=== PATIENT | female | born 2000 | race American Indian/Alaskan Native ===

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

== ENCOUNTER 2021-02-06 13:54 | Emergency (ER) | payer OTHER ==
[2021-02-06 14:22] VITALS: BP 129/74
[2021-02-06 15:18] LABS: Basophils % (Auto) 0.2 % (0.0-1.8); Eosinophils # (Auto) 0.1 K/mm3 (0.0-0.4); Eosinophils % (Auto) 0.5 % (0.0-4.3); Hematocrit 36.5 % (30.3-42.9); Hemoglobin 12.2 gm/dl (10.1-14.3); Lymphocytes # (Auto) 1.6 K/mm3 (1.2-5.4); Lymphocytes % (Auto) 12.8 % (13.4-35.0); Mean Corpuscular HGB Conc 34 % (30-34); Mean Corpuscular Volume 87 fl (79-97); Monocytes # (Auto) 1.1 K/mm3 (0.0-0.8); Monocytes % (Auto) 8.7 % (0.0-7.3); Platelet Count 209 K/mm3 (140-440); Red Blood Count 4.22 M/mm3 (3.65-5.03); Red Cell Distribution Width 13.6 % (13.2-15.2)
[2021-02-06 15:33] LABS: Alanine Aminotransferase 32 units/L (7-56); Albumin 3.6 g/dL (3.9-5); Blood Urea Nitrogen 3 mg/dL (7-17); Calcium 8.9 mg/dL (8.4-10.2); Hemolysis Index 0
[2021-02-06 15:34] LABS: BUN/Creatinine Ratio 6
[2021-02-06 16:35] LABS: Bacteria,Urine 1+ /HPF (Negative); Bilirubin,Urine NEG (Negative); Blood,Urine NEG (Negative); Color,Urine Amber (Yellow); Mucus,Urine 3+ /HPF
== END 2021-02-06 16:45 | disposition left against medical advice (07) ==
LOC: ED 13:54
DX: R11.10 Vomiting, unspecified (principal); Z53.21 Procedure and treatment not carried out due to patient leaving prior to being seen by health care provider
CPT/HCPCS: 36415; 80053; 81001; 85025

== ENCOUNTER 2021-04-10 10:28 | Inpatient (IN) | payer OTHER ==
--- NOTE | 2021-04-10 11:16 | History and Physical Report ---
History of Present Illness Date of examination: 04/10/21 Date of admission: 04/10/21 Chief complaint: labor History of present illness: The patient is a 20-year-old single Afro-[place] female who presents in labor her records are in the chart she goes to [facility] for care her EDC is 04/19/2021 by ultrasound the patient failed her 1 hour GTT has a pending A1c she had 9 visits. Otherwise the patient had a benign care her blood type is O+. Antibody screen negative. Hematocrit 39.7%. Her platelet count was 228,000. Rubella was nonreactive and her RPR was nonreactive. HIV test was nonreactive her 3-hour GTT was normal VDRL was nonreactive. She had several ultrasounds during the . Trichomonas test was negative chlamydia and gonorrhea tests were negative urine culture no growth RPR was nonreactive HIV test is negative hepatitis B test is negative patient does not smoke or use alcohol or illicit drugs. He does have a prior history of asthma. No allergies. Past History Past Medical History: asthma Past Surgical History: no surgical history Family/Genetic History: none Social history: single - Obstetrical History Expected Date of Delivery: 04/19/21 Actual Gestation: 38 Week(s) 5 Day(s) : 1 Para: 0 Hx # Term Pregnancies: 0 Number of Pregnancies: 0 Spontaneous Abortions: 0 Induced : 0 Number of Living Children: 0 Medications and Allergies Allergies Allergy/AdvReac Type Severity Reaction Status Date / Time apple AdvReac Anaphylaxis Verified 04/10/21 11:09 Home Medications Medication Instructions Recorded Confirmed Last Taken Type cephALEXin [Keflex] 500 mg PO Q8HR #21 cap 03/25/20 Unknown Rx metroNIDAZOLE [Flagyl] 500 mg PO Q12HR #14 tab 03/25/20 Unknown Rx Acyclovir 400 mg PO TID 7 Days #21 tablet 04/05/20 Unknown Rx Fluconazole [Diflucan TAB] 150 mg PO ONCE 1 Days #3 tablet 04/05/20 Unknown Rx Review of Systems All systems: negative - Vital Signs Vital signs: Vital Signs Pulse Pulse Ox 85 99 04/10/21 10:45 04/10/21 10:45 Temp Pulse Resp BP Pulse Ox 97.7 F 87 20 125/62 100 04/10/21 10:56 04/10/21 11:05 04/10/21 10:56 04/10/21 10:56 04/10/21 11:05 - Physical Exam Breasts: Positive: normal Cardiovascular: Regular rate, Normal S1, Normal S2 Lungs: Positive: Clear to auscultation, Normal air movement Abdomen: Positive: normal appearance, soft, normal bowel sounds. Negative: distention, tenderness Genitourinary (Female): Positive: normal external genitalia, normal perenium Vulva: both: normal Vagina: Positive: normal moisture. Negative: discharge Cervix: Negative: lesion, discharge Uterus: Positive: normal size, normal contour (term size) Adnexa: both: normal Anus/Rectum: Positive: normal perianal skin, heme negative. Negative: rectal mass, hemorrhoids Extremities: Positive: normal Deep Tendon Reflex Grade: Normal +2 - Obstetrical FHR: auscultation normal, category 1 Uterine Contraction Monitor Mode: External Cervical Dilatation: 3 Cervical Effacement Percentage: 75 station: -3 Uterine Contraction Frequency (min): q3min Uterine Contraction Duration: 1 min Uterine Contraction Pattern: Irregular Results All other labs normal. Assessment and Plan near term in early labor. Expectant vaginal delivery. Her GBS status is not known so we going to treat the patient with antibiotics.
[2021-04-10] MEDS ORDERED: AMPICILLIN/NS 2 GM/100 ML 2 GM/100 ML BAG IV ONE (11:31)
[2021-04-10] MEDS ORDERED: TERBUTALINE 1 MG/1 ML INJ SUB-Q PRN (12:00)
[2021-04-10] MEDS ORDERED: miSOPROStol 200 MCG TAB PR PRN (12:00)
[2021-04-10] MEDS ORDERED: ONDANSETRON 4 MG/2 ML INJ IV PRN ×2 (12:00→13:41)
[2021-04-10] MEDS ORDERED: MINERAL OIL 30 ML ORAL LIQD PO PRN (12:00)
[2021-04-10] MEDS ORDERED: AMPICILLIN/NS 2 GM/100 ML 2 GM/100 ML BAG IV SCH (12:00)
[2021-04-10] MEDS ORDERED: LACTATED RINGERS 1,000 ML IV SCH (12:00)
[2021-04-10] MEDS ORDERED: BUTORPHANOL 2 MG/1 ML INJ IV PRN ×2 (12:00)
[2021-04-10] MEDS ORDERED: LOPERAMIDE 2 MG CAP PO PRN (12:00)
[2021-04-10] MEDS ORDERED: CARBOPROST TROMETHAMINE 250 MCG/1 ML INJ IM PRN (12:00)
[2021-04-10] MEDS ORDERED: fentaNYL 100 MCG/2 ML INJ IV PRN (12:00)
[2021-04-10] MEDS ORDERED: METHYLERGONOVINE MALEATE 0.2 MG/ML VIAL IM PRN (12:00)
[2021-04-10] MEDS ORDERED: ACETAMINOPHEN 325 MG TAB PO PRN ×2 (12:00→13:41)
[2021-04-10] MEDS ORDERED: NalbUPHINE 10 MG/1 ML INJ IV PRN (12:00)
[2021-04-10] MEDS ORDERED: ePHEDrine SULFATE 50 MG/1 ML INJ IV PRN ×2 (12:00→13:02)
[2021-04-10] MEDS ORDERED: OXYTOCIN DRIP 30 UNITS/500 ML BAG IV SCH ×2 (12:00)
[2021-04-10 12:11] LABS: Hemoglobin 11.8 gm/dl (10.1-14.3); Mean Corpuscular HGB Conc 34 % (30-34); Mean Corpuscular Volume 85 fl (79-97); Platelet Count 184 K/mm3 (140-440); Red Blood Count 4.13 M/mm3 (3.65-5.03)
[2021-04-10] MEDS ORDERED: NALOXONE 2 MG/2 ML INJ IV PRN (13:02)
--- NOTE | 2021-04-10 13:02 | Anesthesia Consultation ---
Anesthesia Consult and Med Hx Date of service: 04/10/21 - Airway Anesthetic Teeth Evaluation: Good ROM Head & Neck: Adequate Mental/Hyoid Distance: Adequate Mallampati Class: Class II Intubation Access Assessment: Probably Good - Pulmonary Exam CTA: Yes - Cardiac Exam Cardiac Exam: RRR - Pre-Operative Health Status ASA Pre-Surgery Classification: ASA3 Proposed Anesthetic Plan: Epidural - Pulmonary Hx Asthma: Yes - Other Systems Hx Obesity: Yes
[2021-04-10] MEDS: LIDOCAINE (2%) 20 MG/1 ML VIAL 20 ML MDV INFILTRATI SCH ×2 (13:10→13:24)
[2021-04-10] MEDS ORDERED: miSOPROStol 100 MCG TAB ONE (13:14)
[2021-04-10] MEDS: OXYTOCIN 10 UNIT/1 ML INJ IM PRN ×2 (13:17→13:45)
[2021-04-10] MEDS ORDERED: MAGNESIUM HYDROXIDE (MOM) ORAL LIQD UDC PO PRN (13:41)
[2021-04-10] MEDS ORDERED: LANOLIN/ZINC/DIMETHICONE (LANSINOH) 7 GM TP PRN (13:41)
[2021-04-10] MEDS ORDERED: diphenhydrAMINE 25 MG CAP PO PRN (13:41)
[2021-04-10] MEDS ORDERED: PROMETHAZINE 25 MG RECT SUPP PR PRN (13:41)
[2021-04-10] MEDS ORDERED: WITCH HAZEL/ GLYCERIN PAD TP PRN (13:41)
[2021-04-10] MEDS ORDERED: PROMETHAZINE 25 MG TAB PO PRN (13:41)
[2021-04-10] MEDS ORDERED: OXYTOCIN 10 UNIT/1 ML INJ ONE (13:42)
--- NOTE | 2021-04-10 13:49 | Procedure Note ---
Date of procedure: 04/10/21 Pre-op diagnosis: 38 WK IUP, LABOR Post-op diagnosis: same Procedure: This is Dr. Gonzalez dictating operative note on the patient. Surgeon Dr. Gonzalez. Forest Fire Equipment Operator none. Procedure was a normal spontaneous vaginal delivery midline episiotomy repair, delivery of the placenta. Estimated blood loss 200 cc. Anesthesia local. Drains none. Complications none. Findings liveborn male 7 pounds 5 ounces with Apgars 8 and 9. Procedure was a nonspontaneous vaginal delivery after a midline episiotomy on the local anesthesia. A fetus in occiput vertex presentation was then delivered oropharynx with suction nasopharynx suction. Cord was doubly clamped and cut there was a cord segment around the foot. Cord was doubly cut the patient was passed off the table to the nurses in attendance. Cord blood was obtained placenta then delivered manually. The midline episiotomy was repaired with running 3-0 Vicryl. We checked the rectal mucosa for tears there were no tears in the rectal mucosa. See no further procedures were indicated all instruments removed from the vagina instrument count needle lap sponge count was correct. Anesthesia: local Surgeon: AZALIA GONZALEZ Estimated blood loss: other (200CCS) Pathology: none Specimen disposition: discarded Condition: stable Disposition: floor
[2021-04-10] MEDS ORDERED: fentaNYL-BUPIV 2 MCG/ML-0.125% 200 MCG/100 ML BAG EPIDURAL SCH (14:00)
[2021-04-10] MEDS ORDERED: AMPICILLIN/NS 1 GM/50 ML 1 GM/50 ML BAG IV SCH (16:00)
[2021-04-10] MEDS ORDERED: BENZOCAINE/MENTHOL 20/0.5% TOP SPRAY 56 GM TP PRN (16:03)
[2021-04-10] MEDS: IBUPROFEN 600 MG TAB PO SCH (16:45)
[2021-04-10] MEDS: oxyCODONE /ACETAMINOPHEN 5-325MG TAB PO PRN (20:34)
[2021-04-11] MEDS: IBUPROFEN 600 MG TAB PO SCH ×5 (00:48→23:46)
[2021-04-11] MEDS: oxyCODONE /ACETAMINOPHEN 5-325MG TAB PO PRN ×2 (03:44→11:06)
[2021-04-11 05:03] LABS: Hematocrit 30.3 % (30.3-42.9); Hemoglobin 10.2 gm/dl (10.1-14.3)
--- NOTE | 2021-04-11 10:52 | Progress Note ---
Assessment and Plan A: day 1 S/P . Anemia. Teenager. P: Oral iron supplementation. consult. Case management consult. Continue routine care. Subjective - Subjective Date of service: 04/11/21 Principal diagnosis: day 1 S/P Interval history: Reports trouble latching baby; client development consultant to see patient. Patient reports: appetite normal, voiding normally, pain well controlled, flatus, ambulating normally, no dizzy ambulation, no nauseated : doing well Objective - Vital Signs Latest vital signs: Vital Signs Temp Pulse Resp BP BP Pulse Ox Pulse Ox 04/11/21 09:28 100 04/11/21 08:27 97.5 F L 82 18 128/79 99 04/11/21 03:44 18 99 04/11/21 00:36 99.5 F 70 20 116/72 99 04/10/21 21:20 98 04/10/21 20:34 18 98 04/10/21 16:45 20 04/10/21 15:55 97.8 F 85 20 137/86 100 04/10/21 15:03 83 100 04/10/21 14:58 91 H 99 04/10/21 14:57 98.4 F 81 137/69 137/69 04/10/21 14:53 92 H 100 04/10/21 14:48 81 100 04/10/21 14:43 85 98 04/10/21 14:38 93 H 100 04/10/21 14:33 84 98 04/10/21 14:28 80 99 04/10/21 14:23 84 99 04/10/21 14:22 153 H 91/42 04/10/21 14:18 96 H 99 04/10/21 14:13 85 100 04/10/21 14:08 91 H 98 04/10/21 14:07 90 132/51 04/10/21 14:03 79 98 04/10/21 13:58 85 99 04/10/21 13:55 86 128/60 04/10/21 13:53 72 83 L 04/10/21 13:48 92 H 99 04/10/21 13:43 85 98 04/10/21 13:38 88 93 04/10/21 13:33 91 H 100 04/10/21 13:32 67 81 L 04/10/21 13:28 80 100 04/10/21 13:23 82 100 04/10/21 13:22 78 130/82 04/10/21 13:18 79 100 04/10/21 13:13 91 H 100 04/10/21 13:12 71 92 04/10/21 13:08 91 H 100 04/10/21 13:04 82 82 L 04/10/21 13:03 87 100 04/10/21 12:58 79 99 04/10/21 12:55 84 90 04/10/21 12:53 76 100 04/10/21 12:52 68 150/92 04/10/21 12:48 80 100 04/10/21 12:44 83 93 04/10/21 12:43 73 100 04/10/21 12:38 77 100 04/10/21 12:37 67 142/86 04/10/21 12:33 67 100 04/10/21 12:28 86 100 04/10/21 12:23 68 142/89 98 04/10/21 12:22 68 94 04/10/21 12:18 84 100 04/10/21 12:15 72 88 04/10/21 12:13 80 100 04/10/21 12:08 74 99 04/10/21 12:03 70 89 04/10/21 11:58 66 97 04/10/21 11:53 75 100 04/10/21 11:51 82 94 04/10/21 11:48 74 96 04/10/21 11:44 101 H 90 04/10/21 11:43 76 99 04/10/21 11:38 78 100 04/10/21 11:33 80 100 04/10/21 11:28 85 100 04/10/21 11:23 85 100 04/10/21 11:18 99 04/10/21 11:05 87 100 04/10/21 11:00 86 99 04/10/21 10:56 97.7 F 89 20 125/62 100 04/10/21 10:55 87 100 Intake and Output 04/10/21 04/11/21 04/11/21 23:59 07:59 15:59 Intake Total 200 440 Output Total 200 900 Balance 0 -460 Intake: Oral 200 440 Output: Urine 200 900 Void 200 900 Other: Total, Intake Amount 200 120 Total, Output Amount 200 600 # Voids Void 1 - Exam Cardiovascular: Present: Regular rate Lungs: Present: Clear to auscultation Abdomen: Present: normal appearance, soft, normal bowel sounds. Absent: distention, tenderness, guarding, rigidity Uterus: Present: normal, firm, fundal height at umbilicus. Absent: bogginess, tenderness Extremities: Present: normal. Absent: tenderness, edema
[2021-04-11] MEDS: DOCUSATE SODIUM 100 MG CAP PO SCH ×2 (11:14→21:46)
[2021-04-11] MEDS: FERROUS SULFATE 325 MG TAB PO SCH ×2 (11:15→21:46)
--- NOTE | 2021-04-12 06:33 | Progress Note ---
Assessment and Plan A: day 2 S/P . Anemia. P: Discharge patient home today after she sees case management and railroad design consultant. Discussed with patient discharge instructions and warning signs. Advised patient to continued taking her vitamins and iron supplements at home. Advised patient to avoid intercourse, lifting, housework, driving. Advised patient to follow up at [place] [facility] office in 1 week (patient to call for appointment). Patient voiced understanding of all instructions. Subjective - Subjective Date of service: 04/12/21 Principal diagnosis: day 2 S/P Interval history: Patient desires discharge today. Patient reports: appetite normal, voiding normally, pain well controlled, flatus, ambulating normally, no dizzy ambulation, no nauseated : doing well Objective - Vital Signs Latest vital signs: Vital Signs Temp Pulse Resp BP Pulse Ox Pulse Ox 04/12/21 01:55 98.5 F 71 18 114/57 99 04/11/21 23:46 20 04/11/21 20:00 99 04/11/21 17:55 20 04/11/21 17:49 97.9 F 91 H 18 129/77 99 04/11/21 11:04 20 04/11/21 09:28 100 04/11/21 08:27 97.5 F L 82 18 128/79 99 Intake and Output 04/11/21 04/11/21 04/12/21 15:59 23:59 07:59 Intake Total 240 300 Balance 240 300 Intake: Intake, Free Water 240 300 Other: # Voids Void 1 1 1 - Exam Cardiovascular: Present: Regular rate Lungs: Present: Clear to auscultation Abdomen: Present: normal appearance, soft, normal bowel sounds. Absent: distention, tenderness, guarding, rigidity Uterus: Present: normal, firm, fundal height below umbilicus (Fundus at 1 FB below umbilicus). Absent: bogginess Extremities: Present: edema (mild bilateral pedal edema). Absent: tenderness
--- NOTE | 2021-04-12 06:38 | Discharge Summary ---
Providers - Providers Date of Admission: 04/10/21 10:29 Date of discharge: 04/12/21 Attending physician: AZALIA GONZALEZ MD 04/11/21 10:46 Consult to Case Management [CONS] Routine Services Needed at Discharge: Cuff Knitter Additional Physician Instructions: Teen and delivery 04/11/21 10:53 Consult to Director Talent [CONS] Routine Reason For Exam: Primary care physician: AZALIA GONZALEZ MD Hospitalization Reason for admission: active labor Delivery: Episiotomy: midline Other procedures: none complications: none Discharge diagnosis: IUP at term delivered baby: male Pertinent studies: Labs Hospital course: Uncomplicated hospital course. Condition at discharge: Good Disposition: 01 HOME / SELF CARE / HOMELESS - Discharge Diagnoses (1) Term delivered Status: Acute (2) Anemia Status: Acute Plan - Provider Discharge Summary Activity: routine, no sex for 6 weeks, no heavy lifting 4 weeks, no strenuous exercise Diet: routine Instructions: routine Additional instructions: Continue taking your vitamins and iron supplements at home. Follow up at [facility] in 1 week. Call your doctor immediately for: * Fever > 100.5 * Heavy vaginal bleeding ( >1 pad per hour) * Severe persistent headache * Shortness of breath * Reddened, hot, painful area to leg or breast - Follow up plan Follow up: [facility] [Referring] - 7 Days Forms: [facility] Discharge Summary
[2021-04-12] MEDS: IBUPROFEN 600 MG TAB PO SCH ×2 (07:21→08:30)
[2021-04-12] MEDS: FERROUS SULFATE 325 MG TAB PO SCH (10:22)
[2021-04-12 12:26] VITALS: BP 130/79
== END 2021-04-12 12:00 | disposition home or self-care (01) | DRG 775 ==
LOC: TRG 10:28 → LD 10:29 → APU 10:32 → LD 11:07 → TRG 11:21 → OB 15:45
PROC: 10E0XZZ Delivery of Products of Conception, External Approach (ICD-10-PCS; principal; 2021-04-10)
PROC: 0W8NXZZ Division of Female Perineum, External Approach (ICD-10-PCS; 2021-04-10)
DX: O99.52 Diseases of the respiratory system complicating childbirth (principal); Z3A.38 38 weeks gestation of pregnancy; Z37.0 Single live birth; J45.909 Unspecified asthma, uncomplicated; O90.81 Anemia of the puerperium; Z20.822 Contact with and (suspected) exposure to COVID-19; Z91.018 Allergy to other foods
CPT/HCPCS: 36415; 59025; 85014; 85018; 85027; 86850; 86900; 86901; 96374; G0378; J0290; J0595; J2405; J2590; J7120; U0003